=== PATIENT | female | born 1980 | race Caucasian/White ===

== ENCOUNTER → 2020-09-11 | Outpatient (CLI) | payer OTHER ==
[~2020-09-11] MED LIST: CIPRO500 MG PO; MACROBID 100 M100 MG PO; ZOFRAN4 MG PO
== END ==
LOC: KOH-I 09:30
DX: S86.012D Strain of left Achilles tendon, subsequent encounter (principal)
CPT/HCPCS: 73721

== ENCOUNTER → 2020-11-02 | Outpatient (CLI) | payer OTHER | LOC: MAMO 10-03 14:30 → US 10-05 13:30 → MAMO 14:21 | DX: Z12.31 Encounter for screening mammogram for malignant neoplasm of breast (principal) | CPT/HCPCS: 76641-RT; 77066; G0279 ==